=== PATIENT | female | born 1985 | race American Indian/Alaskan Native ===

== ENCOUNTER 2016-04-20 11:30 | Emergency (ER) | payer SELFPAY ==
[2016-04-20] MEDS ORDERED: TORADOL IM ONE (16:35)
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
[2016-04-20 17:15] VITALS: BP 130/78
== END 2016-04-20 17:14 | disposition home or self-care (01) ==
LOC: ED 11:30
DX: M25.562 Pain in left knee (principal); G43.909 Migraine, unspecified, not intractable, without status migrainosus; J45.909 Unspecified asthma, uncomplicated; G89.29 Other chronic pain; Z88.8 Allergy status to other drugs, medicaments and biological substances
CPT/HCPCS: 96372; 99282; J1885

== ENCOUNTER 2016-06-27 22:20 | Emergency (ER) | payer OTHER ==
[2016-06-28] MEDS ORDERED: MOTRIN PO ONE (02:24)
--- NOTE | 2016-06-28 02:29 | Emergency Department Report ---
ED Lower Extremity HPI - General Chief Complaint: Extremity Injury, Lower Stated Complaint: LF KNEE SWELLING Time Seen by Provider: 06/28/16 01:20 Source: patient Mode of arrival: Ambulatory Limitations: No Limitations - History of Present Illness Initial Comments: This is a 31-year-old female that presents with left knee pain for the past 2 months. Patient denies any recent or history of injury to her left knee. Patient stated has been in the ER for left knee pain and was given Tyrese bandage and muscle relaxant without relief. Patient denies x-ray to the extremity. Patient denies any numbness or tingling sensation in extremities, calf pain, swelling, redness, fever, chills, nausea or vomiting, chest pain or shortness of breath. Patient is well-nourished. No signs of distress noted. Nontoxic in appearance. MD Complaint: knee injury -: Gradual, month(s) (2) Injury: Knee: Left Type of Injury: unknown Severity: mild Severity scale (0 -10): 10 Improves With: nothing Worsens With: other (bending) Associated Symptoms: denies: snap/pop sensation, swelling, numbness, tingling, unable to bear weight, able to partially bear weight, ambulatory - Related Data Previous Rx's Medication Instructions Recorded Last Taken Type Clindamycin [Clindamycin CAP] 300 mg PO TID #30 capsule 10/05/13 Unknown Rx HYDROcodone/APAP 5-325 [[place] 1 each PO Q6HR PRN #20 tablet 10/05/13 Unknown Rx 5/325] Ibuprofen [Motrin] 600 mg PO Q8H PRN #40 tablet 10/05/13 Unknown Rx Loratadine [Claritin] 10 mg PO DAILY #30 tablet 10/05/13 Unknown Rx predniSONE [Deltasone] 50 mg PO QDAY #5 tab 10/05/13 Unknown Rx Amoxicillin/K Clav Tab [Augmentin 1 tab PO BID #20 tablet 03/22/14 Unknown Rx 875MG] Prednisone 10 mg PO QDAY #14 tablet 03/22/14 Unknown Rx traMADol [Ultram] 50 mg PO Q6HR PRN #20 tablet 04/20/16 Unknown Rx Ibuprofen [Motrin 600 MG tab] 600 mg PO Q8H PRN 7 Days 06/28/16 Unknown Rx Allergies Allergy/AdvReac Type Severity Reaction Status Date / Time albuterol Allergy Shortness Verified 10/05/13 01:39 of Breath ED Review of Systems ROS: Stated complaint: LF KNEE SWELLING Other details as noted in HPI Constitutional: denies: chills, fever Eyes: denies: eye pain, eye discharge, vision change ENT: denies: ear pain, throat pain Respiratory: denies: cough, shortness of breath, wheezing Cardiovascular: denies: chest pain, palpitations Endocrine: no symptoms reported Gastrointestinal: denies: abdominal pain, nausea, diarrhea Genitourinary: denies: urgency, dysuria, discharge Musculoskeletal: denies: back pain, joint swelling, arthralgia Skin: denies: rash, lesions Neurological: denies: headache, weakness, paresthesias Psychiatric: denies: anxiety, depression Hematological/Lymphatic: denies: easy bleeding, easy bruising ED Past Medical Hx - Past Medical History Hx Headaches / Migraines: Yes Hx Asthma: Yes Additional medical history: Chronic knee pain - Surgical History Additional Surgical History: kidney stones - Social History Smoking Status: Never Smoker Substance Use Type: None - Medications Home Medications: Home Medications Medication Instructions Recorded Confirmed Last Taken Type Clindamycin [Clindamycin CAP] 300 mg PO TID #30 capsule 10/05/13 Unknown Rx HYDROcodone/APAP 5-325 [[place] 1 each PO Q6HR PRN #20 tablet 10/05/13 Unknown Rx 5/325] Ibuprofen [Motrin] 600 mg PO Q8H PRN #40 tablet 10/05/13 Unknown Rx Loratadine [Claritin] 10 mg PO DAILY #30 tablet 10/05/13 Unknown Rx predniSONE [Deltasone] 50 mg PO QDAY #5 tab 10/05/13 Unknown Rx Amoxicillin/K Clav Tab [Augmentin 1 tab PO BID #20 tablet 03/22/14 Unknown Rx 875MG] Prednisone 10 mg PO QDAY #14 tablet 03/22/14 Unknown Rx traMADol [Ultram] 50 mg PO Q6HR PRN #20 tablet 04/20/16 Unknown Rx Ibuprofen [Motrin 600 MG tab] 600 mg PO Q8H PRN 7 Days 06/28/16 Unknown Rx ED Physical Exam - General Limitations: No Limitations General appearance: alert, in no apparent distress - Head Head exam: Present: atraumatic, normocephalic - Eye Eye exam: Present: normal appearance - ENT ENT exam: Present: mucous membranes moist - Neck Neck exam: Present: normal inspection - Respiratory Respiratory exam: Present: normal lung sounds bilaterally. Absent: respiratory distress - Cardiovascular Cardiovascular Exam: Present: regular rate, normal rhythm. Absent: systolic murmur, diastolic murmur, rubs, gallop - GI/Abdominal GI/Abdominal exam: Present: soft, normal bowel sounds - Extremities Exam Extremities exam: Present: normal inspection - Expanded Lower Extremity Exam Left Hip exam: Present: full ROM, tenderness Upper Leg exam: Present: normal inspection, full ROM Knee exam: Present: normal inspection, full ROM, tenderness, full knee extension. Absent: swelling, abrasion, laceration, ecchymosis, deformity, crepidus, dislocation, erythema, effusion, pain w/ pronation/supination, posterior draw sign, pain/laxity with valgus, pain/laxity with varus Lower Leg exam: Present: normal inspection, full ROM Ankle exam: Present: normal inspection, full ROM Foot/Toe exam: Present: normal inspection, full ROM Neuro vascular tendon exam: Present: no vascular compromise Gait: Positive: observed and normal 1 - Complaint of pain - Back Exam Back exam: Present: normal inspection, full ROM. Absent: tenderness, CVA tenderness (R), CVA tenderness (L) - Neurological Exam Neurological exam: Present: alert, oriented X3 - Psychiatric Psychiatric exam: Present: normal affect, normal mood - Skin Skin exam: Present: warm, dry, intact, normal color. Absent: rash ED Course Vital Signs 06/27/16 06/28/16 23:30 02:39 Temperature 98.5 F Pulse Rate 94 H 93 H Respiratory 16 16 Rate Blood Pressure 128/82 Blood Pressure 128/82 115/64 [Left] O2 Sat by Pulse 100 99 Oximetry ED Lower Extremity MDM - Medical Decision Making ED course: 31-year-old female that presents with left knee pain 2 months 1-Patient received ibuprofen 600 mg in the ED for pain 2- x-ray was obtained in the ED. Results: negative for fractures 3- I notified the patient of the x-ray results. No further questions noted by the patient. 4- patient is discharged with ibuprofen 600 mg by mouth for pain. I instructed patient to follow up with her primary care doctor for possible intermittent MRI left knee. 5- patient agrees with discharge treatment and plan. No further questions noted by the patient. Critical care attestation.: If time is entered above; I have spent that time in minutes in the direct care of this critically ill patient, excluding procedure time. ED Disposition Clinical Impression: Strain of left knee Qualifiers: Encounter type: initial encounter Qualified Code(s): S86.912A - Strain of unspecified muscle(s) and tendon(s) at lower leg level, left leg, initial encounter Disposition: DISCHARGED TO HOME OR SELFCARE Is pt being admited?: No Does the pt Need Aspirin: No Condition: Stable Instructions: Knee Pain (ED) Additional Instructions: Follow-up with her primary care doctor/orthopedic in 3-5 days or if symptoms worsen report back to the ED. Take ibuprofen as prescribed as needed You may need an MRI for further testing. Prescriptions: Ibuprofen [Motrin 600 MG tab] 600 mg PO Q8H PRN 7 Days PRN Reason: Pain Referrals: PRIMARY CAREMD [Primary Care Provider] - 3-5 Days AREN MCKENNA MD [Staff Physician] - 3-5 Days [facility] [Outside] - 3-5 Days [facility] [Outside] - 3-5 Days Forms: Work/School Release Form(ED)
[2016-06-28 02:40] VITALS: BP 115/64
--- NOTE | 2016-06-28 02:43 | XRay Report ---
FINAL REPORT PROCEDURE: XR KNEE 3V LT TECHNIQUE: LEFT knee radiographs, AP, lateral and sunrise views. CPT 70976 HISTORY: pain COMPARISON: No prior studies are available for comparison. FINDINGS: Fracture (s) and/or Dislocation(s): None . Alignment: Normal . Joint space(s): Normal . Soft tissues: Normal . Bone mineralization: Normal . Foreign bodies: None . IMPRESSION: Normal Examination.
== END 2016-06-28 02:49 | disposition home or self-care (01) ==
LOC: ED 22:20
DX: S86.912A Strain of unspecified muscle(s) and tendon(s) at lower leg level, left leg, initial encounter (principal); G43.909 Migraine, unspecified, not intractable, without status migrainosus; J45.909 Unspecified asthma, uncomplicated; G89.29 Other chronic pain; Z88.8 Allergy status to other drugs, medicaments and biological substances; X58.XXXA Exposure to other specified factors, initial encounter; Y93.89 Activity, other specified; Y99.8 Other external cause status; Y92.89 Other specified places as the place of occurrence of the external cause
CPT/HCPCS: 99283